=== PATIENT | female | born 1985 | race Caucasian/White ===

== ENCOUNTER 2025-02-22 13:00 | Inpatient (IN) | payer OTHER ==
[2025-02-22] MEDS ORDERED: TRANEXAMIC 1,000 MG/100ML-NACL 1,000 MG in EMPTY BAG 1 BAG IV PRN (13:18)
[2025-02-22] MEDS ORDERED: CARBOPROST TROMETHAMINE 250 MCG/ML 1 ML AMP IM PRN (13:18)
[2025-02-22] MEDS ORDERED: TERBUTALINE 1 MG/ML VIAL SQ PRN (13:18)
[2025-02-22] MEDS ORDERED: OXYTOCIN 10 UNIT/ML 1 ML VIAL IM PRN (13:18)
[2025-02-22] MEDS ORDERED: LIDOCAINE 0.5% (PF) 5 MG/ML (50 ML SDV) SQ PRN (13:18)
[2025-02-22] MEDS ORDERED: METHYLERGONOVINE 0.2 MG/ML 1 ML AMP IM PRN (13:18)
[2025-02-22] MEDS: LACTATED RINGERS 1,000 ML IV SCH (13:39)
[2025-02-22 13:54] LABS: Basophils # (A) 0.03 10*3/uL (0.00-0.10); Basophils % (A) 0.2 %; Eosinophils # (A) 0.01 10*3/uL (0.04-0.35); Eosinophils % (A) 0.1 %; HCT 37.7 % (37.2-46.3); HGB 12.3 g/dL (12.0-15.0); Lymphocytes # (A) 3.09 10*3/uL (0.90-5.00); Lymphocytes % (A) 22.2 %; MCH 25.7 pg (27.0-32.0); MCHC 32.6 g/dL (32.0-37.0); MCV 78.9 fL (80.0-97.0); Monocytes # (A) 0.64 10*3/uL (0.20-1.00); Monocytes % (A) 4.6 %; Neutrophils # (A) 10.05 10*3/uL (1.80-7.70); Neutrophils % (A) 72.3 %; Platelet Count 333 10*3/uL (140-440); RBC 4.78 10*6/uL (4.10-5.20); RDW 14.0 % (11.5-14.5); WBC 13.90 10*3/uL (4.50-10.00)
--- NOTE | 2025-02-22 13:57 | P.HPOB ---
History of Present Illness H&P Date: 02/22/25 Chief Complaint: Contractions Ms. Olivera is a 39 year old at 39 weeks and 3 days with EDC of 02/26/2025 by 18 week who presents in active labor. has been essentially uncomplicated. This is will be a (she has had 3 prior). Obstetric history: 1 FTCS 42 weeks > 1 at 36 weeks, 2 fullterm VBACs both 40 weeks Labwork: blood type A negative (s/p rhogam at 28 weeks), antibody screen negative, rubella immune, HBsAg negative, VDRL non-reactive HBsAg negative, HIV negative, HCV Ab non-reactive, gonorrhea negative, chlamydia negative, GBS negative. Past Medical History History of Any Multi-Drug Resistant Organisms: None Reported Smoking Status: Never smoker Medications and Allergies Home Medications Medication Instructions Recorded Confirmed Type Vit No.179/Iron/Folic 1 tablet PO DAILY 02/22/25 02/22/25 History [ Tablet] Allergies Allergy/AdvReac Type Severity Reaction Status Date / Time No Known Allergies Allergy Verified 02/22/25 13:04 Exam Vital Signs Pulse Resp BP 02/22/25 13:03 75 16 133/80 Intake and Output 02/21/25 02/22/25 02/22/25 22:59 06:59 14:59 Other: Weight 110.677 kg Focused physical exam is performed. This is a healthy-appearing in no apparent distress. Breathing is non-labored. Abdomen is gravid and non-tender. Cervical exam is 6cm with bulging bag. Extremities non-tender and non- edematous. heart tones are Category I and tocometer is graphing contractions every 2-4 minutes. Assessment and Plan Assessment: 39 year old at 39 weeks and 3 days presenting in active labor for a Plan: Admit, clear liquid diet, epidural ALKA, plan for AROM and pitocin augmentation as needed, continuous EFM and tocometer. Anticipate vaginal delivery.
[2025-02-22] MEDS ORDERED: ROPIVACAINE 5 MG/ML 30 ML VIAL ONE (14:12)
[2025-02-22] MEDS ORDERED: SODIUM CHLORIDE 0.9% 250 ML BAG ONE (14:12)
[2025-02-22] MEDS ORDERED: fentaNYL (PF) 50 MCG/ML 5 ML AMP ONE (14:12)
[2025-02-22] MEDS: BUTORPHANOL 1 MG/ML 1 ML VIAL IV ONE (18:10)
[2025-02-22] MEDS: OXYTOCIN 30 UNITS/500 ML NS 30 UNIT in SALINE 1 500ML.BAG IV SCH (18:15)
[2025-02-22] MEDS ORDERED: HYDROCORTISONE 2.5% RECTAL CREAM 30 GM TUBE RECTAL PRN (18:25)
[2025-02-22] MEDS ORDERED: ZOLPIDEM 5 MG TAB PO PRN (18:25)
[2025-02-22] MEDS ORDERED: SIMETHICONE 80 MG CHEWABLE PO PRN (18:25)
[2025-02-22] MEDS ORDERED: LANOLIN CREAM 1 GM TUBE TOPICAL PRN (18:25)
[2025-02-22] MEDS ORDERED: diphenhydrAMINE 50 MG/ML 1 ML VIAL IVP PRN ×2 (18:25)
[2025-02-22] MEDS ORDERED: diphenhydrAMINE 25 MG CAP PO PRN (18:25)
--- NOTE | 2025-02-22 18:25 | P.PROBDLV ---
Vaginal Delivery Note - . Vaginal Delivery Note: DATE OF SERVICE: 02/22/2025 PROCEDURE: Normal Vaginal Delivery ATTENDING: Dr. Mara Boyle MD ESTIMATED BLOOD LOSS: 200 mL FINDINGS: VMI, Apgars /. Weight 6 pounds and 13.5 ounces (3105 grams) PROCEDURE: Ms. Olivera is a 39 year old at 39 weeks and 3 days presenting to labor and delivery in active labor. For further details, please review the admitting H&P. The patient received epidural anesthesia per her request. AROM was undertaken with thick meconium noted. The patient was completely dilated at 1801. She pushed effectively with Category II FHTs and a viable male was delivered at 1802. The infant was placed on the maternal abdomen and bulb suctioned. The was noted to be spontaneously crying. Cord was clamped and cut promptly. The infant was handed off to the pediatric team. Placenta manually after an umbililcal cord avulsion. The placenta was inspected carefully and felt to be whole. Oxytocin was started to facilitate uterine tone. Uterine fundus was found to be firm and below the umbilicus upon fundal massage. Thorough ex amination of the cervix, vagina, periurethral area, and perineum revealed no lacerations. The patient is stable and allowed to begin the bonding process.
[2025-02-22] MEDS: IBUPROFEN 800 MG TAB PO SCH (21:53)
[2025-02-22] MEDS: SENNOSIDES-DOCUSATE SODIUM 1 EACH TAB PO SCH (21:53)
[2025-02-22] MEDS: BENZOCAINE/MENTHOL SPRAY 1 GM/SPRAY AEROSOL TOPICAL PRN (21:54)
[2025-02-23] MEDS: ACETAMINOPHEN TAB 500 MG TAB PO SCH (02:22)
[2025-02-23] MEDS: Rhogam IMMUNE GLOBULIN 1,500 UNIT/1 ML IM ONE (05:46)
[2025-02-23 06:21] LABS: Basophils # (A) 0.04 10*3/uL (0.00-0.10); Basophils % (A) 0.3 %; Eosinophils # (A) 0.04 10*3/uL (0.04-0.35); Eosinophils % (A) 0.3 %; HCT 31.8 % (37.2-46.3); HGB 10.3 g/dL (12.0-15.0); Lymphocytes # (A) 3.28 10*3/uL (0.90-5.00); Lymphocytes % (A) 23.4 %; MCH 26.1 pg (27.0-32.0); MCHC 32.4 g/dL (32.0-37.0); MCV 80.7 fL (80.0-97.0); Monocytes # (A) 0.68 10*3/uL (0.20-1.00); Monocytes % (A) 4.9 %; Neutrophils # (A) 9.90 10*3/uL (1.80-7.70); Neutrophils % (A) 70.6 %; Platelet Count 245 10*3/uL (140-440); RBC 3.94 10*6/uL (4.10-5.20); RDW 13.9 % (11.5-14.5); WBC 14.01 10*3/uL (4.50-10.00)
[2025-02-23 08:02] VITALS: RESP 16
--- NOTE | 2025-02-23 09:31 | P.DS ---
Providers Date of admission: 02/22/25 13:16 Expected date of discharge: 02/23/25 Attending physician: Avinash Jung Primary care physician: Stated None - Discharge Diagnosis(es) (1) (vaginal after ) Current Visit: Yes Status: Acute Hospital Course: The patient is a 39-year-old 5 para 3-1-0-4 admitted at 39 and 3 days by good dating parameters. She is admitted in labor with all signs reassuring, category 1 heart rate tracing. Her has been uncomplicated though she does carry history of a section with her first delivery and has had 3 successful vaginal delivery since. She has requested vaginal trial of labor. On labor delivery, she had an epidural catheter placed for analgesia and underwent artificial rupture of membranes for moderate to thick meconium stained fluid. She ultimately progressed to complete and then pushed to a normal spontaneous vaginal delivery of a viable 6 pound 13.5 ounce baby boy with Apgars of 5 at 1 minute and 9 at 5 minutes. She did ultimately require manual extraction of the placenta as the cord avulsion. Her course was unremarkable with vital signs remaining stable and her temperature was afebrile throughout. She was deemed stable for discharge on day #1 and was discharged home to follow-up in the office in 6 weeks time routinely. Discharge instructions included calling for any significantly increased bleeding or foul- smelling lochia, significantly increased fever abdominal pain, perineal complaints, breast complaints, or anything else that concerned her. She was additionally instructed to have nothing in the vagina for at least 6 weeks time to include intercourse. She understood her instructions and agrees to follow-up as noted above. Discharge medications included continued vitamins as she has opted to breast-feed. She was otherwise to use [id number] analgesic pain medications as needed. Maternal blood type is A- and cord blood was sent for evaluation for the necessity of RhoGAM. Rubella status is immune. Procedures: #1. Epidural analgesia #2. Artificial rupture of membranes #3. Normal spontaneous vaginal delivery #4. Manual extraction of the placenta Patient Condition at Discharge: Stable Plan - Discharge Summary New Discharge Prescriptions: No Action Vit No.179/Iron/Folic [ Tablet] 1 tablet PO DAILY Discharge Medication List Vit No.179/Iron/Folic [ Tablet] 1 tablet PO DAILY 02/22/25 [History] Follow up Appointment(s)/Referral(s): Avinash Jung MD [STAFF PHYSICIAN] - 6 Weeks Discharge Disposition: HOME SELF-CARE
[2025-02-23 15:31] VITALS: BP 125/82; PULSE 78; TEMP 98
== END 2025-02-23 19:00 | disposition home or self-care (01) | DRG 807 ==
LOC: FBPOP 13:00 → 4FBP 13:16
PROVIDERS: ADMIT Obstetrics & Gynecology; ATTEND Obstetrics & Gynecology
PROC: 10E0XZZ Delivery of Products of Conception, External Approach (ICD-10-PCS; principal; 2025-02-22)
PROC: 10907ZC Drainage of Amniotic Fluid, Therapeutic from Products of Conception, Via Natural or Artificial Opening (ICD-10-PCS; 2025-02-22)
PROC: 3E033VJ Introduction of Other Hormone into Peripheral Vein, Percutaneous Approach (ICD-10-PCS; 2025-02-22)
PROC: 4A1HXCZ Monitoring of Products of Conception, Cardiac Rate, External Approach (ICD-10-PCS; 2025-02-22)
DX: O34.219 Maternal care for unspecified type scar from previous cesarean delivery (principal); Z37.0 Single live birth; O69.89X0 Labor and delivery complicated by other cord complications, not applicable or unspecified; O77.0 Labor and delivery complicated by meconium in amniotic fluid; Z3A.39 39 weeks gestation of pregnancy
CPT/HCPCS: 59025; 85025; 85461; 86850; 86900; 86901; 99213